=== PATIENT | female | born 1995 | race Caucasian/White ===

== ENCOUNTER 2018-11-07 15:59 | Outpatient (REF) | payer BC, SELFPAY ==
--- NOTE | 2018-11-07 15:30 | PAPFT_PTH ---
PATIENT: KENISHA ZHANG LOC: N U#:[id number] AGE/SX: 23/F ROOM: RE11/07/[address]: ANAM [place] : 1995 BED: DIS: 11/07/2018 SPEC #: [id number] RECD: 11/07/18 17:58 STATUS: MAGDALENA REEugenia #: [id number] RONAL: 11/07/18 15:[address]: Nola Beaver DEPT: [facility], [facility] Cytology RECD BY: Carolyn Chao ENTERED: 11/07/18 17:59 SP TYPE: PAPFT OT DR: Jayleen Anderson APRN Tissues: 1 - CX/ENDOCX FOR PAP SMEARS Procedures: PAP THIN PREP/[facility] Screening Comments: [id number]
== END 2018-11-07 16:19 ==
LOC: LBN 15:59
PROVIDERS: Visit Provider Nurse Practitioner Family
DX: Z12.4 Encounter for screening for malignant neoplasm of cervix (principal)
CPT/HCPCS: 88142

== ENCOUNTER 2020-03-25 10:27 | Outpatient (CLI) | payer SELFPAY ==
[2020-03-26 15:21] LABS: COVID-19 RT-PCR UVMMC Result Negative (Negative)
== END 2020-03-25 10:47 ==
DX: Z20.828 Contact with and (suspected) exposure to other viral communicable diseases (principal)
CPT/HCPCS: U0003

== ENCOUNTER 2020-03-29 12:18 | Outpatient (REF) | payer BC, SELFPAY ==
--- NOTE | 2020-03-29 10:50 | PAPFT_PTH ---
PATIENT: KENISHA ZHANG LOC: [facility] U#:[id number] AGE/SX: 25/F ROOM: RE03/29/[address]: ANAM [place] : 1995 BED: DIS: 03/29/2020 SPEC #: [id number] RECD: 03/29/20 13:05 STATUS: MAGDALENA REEugenia #: [id number] RONAL: 03/29/20 10:[address]: Nola Beaver DEPT: [facility] Cytology RECD BY: Carolyn Chao ENTERED: 03/29/20 13:05 SP TYPE: PAPFT OTHR DR: Jayleen Anderson APRN Tissues: 1 - CX/ENDOCX FOR PAP SMEARS Procedures: PAP THIN PREP/[facility] Screening Comments: [id number]
== END 2020-03-29 12:38 ==
LOC: LBN 12:18
PROVIDERS: Visit Provider Nurse Practitioner Family
DX: Z12.4 Encounter for screening for malignant neoplasm of cervix (principal)
CPT/HCPCS: 88142